=== PATIENT | female | born 1955 | race Caucasian/White ===

== ENCOUNTER 2021-10-07 05:25 | Inpatient (IN) | payer MEDICARE ==
[2021-10-01 10:32] LABS: BASOPHILS # (AUTO) 0.1 X10'3 (0-0.2); BASOPHILS % (AUTO) 0.6 % (0-1); EOSINOPHILS # (AUTO) 0.1 X10'3 (0-0.9); EOSINOPHILS % (AUTO) 0.9 % (0-6); LYMPHOCYTES # (AUTO) 2.5 X10'3 (1.1-4.8); LYMPHOCYTES % (AUTO) 19.1 % (21-51); MEAN CORPUSCULAR HEMOGLOBIN 32.7 PG (27.0-31.0); MEAN CORPUSCULAR HGB CONC 33.9 g/dL (33.0-36.5); MEAN CORPUSCULAR VOLUME 96.7 FL (78-98); MEAN PLATELET VOLUME 7.8 FL (7.4-10.4); MONOCYTES # (AUTO) 0.8 X10'3 (0-0.9); MONOCYTES % (AUTO) 5.8 % (2-12); NEUTROPHILS # (AUTO) 9.6 X10'3 (1.8-7.7); NEUTROPHILS % (AUTO) 73.6 % (42-75); PRE OP HEMATOCRIT 37.6 % (35.0-45.0); PRE OP HEMOGLOBIN 12.7 g/dL (12.0-16.0); PRE OP PLATELET COUNT 485 X10'3 (140-440); RED BLOOD COUNT 3.88 X10'6 (4.20-5.60); RED CELL DISTRIBUTION WIDTH 14.5 % (11.5-14.5)
[2021-10-01 11:09] LABS: ALBUMIN 4.3 G/DL (3.4-5.0); ALBUMIN/GLOBULIN RATIO 1.1 (1.1-1.5); ALKALINE PHOSPHATASE 50 IU/L (46-116); BLOOD UREA NITROGEN 25 MG/DL (7-18); BUN/CREATININE RATIO 22.5 (6.6-38.0); CALCIUM 9.5 MG/DL (8.5-10.1); CHLORIDE 104 MMOL/L (99-107); CREATININE 1.11 MG/DL (0.40-0.90); PRE OP ALT 28 U/L (30-65); PRE OP ANION GAP 11 (8-16); PRE OP AST 11 U/L (10-37); PRE OP BILIRUB, TOTAL 0.3 MG/DL (0.0-1.0); PRE OP GLUCOSE 116 MG/DL (70-104); PRE OP SODIUM 139 MMOL/L (135-145); TOTAL CARBON DIOXIDE 23.7 MMOL/L (24-32); TOTAL PROTEIN 8.2 G/DL (6.4-8.2); eGFR 49 ML/MIN
[2021-10-01 11:15] LABS: CLARITY,URINE CLEAR (Clear); COLOR,URINE YELLOW (Yellow); GLUCOSE, URINE NEGATIVE (Neg); KETONES,URINE NEGATIVE (Neg); LEUKOCYTE ESTERASE ,URINE TRACE (Neg); NITRITES, URINE NEGATIVE (Neg); OCCULT BLOOD,URINE NEGATIVE (Neg); PROTEIN,URINE TRACE mg/dl (Neg); UROBILINOGEN,URINE 0.2 E.U/dL (0.2-1.0)
[2021-10-01 11:19] LABS: UA COLLECTION TYPE NON-SPECIFIED
[2021-10-01 11:30] LABS: HYALINE CASTS >30 /LPF (NEGATIVE); SQUAMOUS EPITHELIAL CELL,UR MANY /LPF (FEW)
[2021-10-01 11:32] LABS: BACTERIA,URINE 1+ /HPF (Neg); RBC,URINE 0-2 /HPF (0-2); WBC,URINE 20-30 /HPF (0-4)
[~2021-10-07] VITALS: Ht 167.6 cm; Wt 77.7 kg
[2021-10-07] VITALS (21 sets, daily range): BP systolic 105–136; BP diastolic 47–64
[~2021-10-07 05:25] MED LIST: ACET-1084 PO; ASPI-611 PO; CHOL500050 PO; CLON-330 PO; HYDR25TA5 PO; IRON 65 MG PO; LISI20TA28 PO; ZINC50TA67 PO; ringers solution, lacted 1,000 ML IV SCH
[2021-10-07] MEDS ORDERED: MALTODEXTRIN/FRUCTOSE 0.68 KCAL/ML LIQUID 296ML BOTTLE PO ONE (05:30)
[2021-10-07] MEDS ORDERED: ceFOXitin 2GM-NS 100mL ADDvant 100 ML IV ONE (05:30)
[2021-10-07] MEDS ORDERED: heparin, porcine 5000 units/ml vial SQ ONE (05:30)
[2021-10-07] MEDS ORDERED: metroNIDAZOLE-Flagyl 500mg/NS 100ml IVPB IV ONE (05:30)
[2021-10-07] MEDS ORDERED: famotidine 20mg tablet PO ONE (05:30)
[2021-10-07] MEDS ORDERED: LIDOcaine 1% (10mg/ml) 2ml vial ONE (05:57)
[2021-10-07] MEDS ORDERED: tobramycin 40mg/ml inj ONE (06:48)
[2021-10-07] MEDS ORDERED: povidone-iodine 10% ointment 1 APPLIC APPLIC TP ONE (06:48)
[2021-10-07] MEDS ORDERED: BUPIVAcaine 0.5% inj/PF 30 ML ONE (06:48)
[2021-10-07] MEDS ORDERED: rocuronium 10mg/ml inj IV ONE ×2 (07:28→08:11)
[2021-10-07] MEDS ORDERED: sevoflurane 250ml liquid IH ONE (07:28)
[2021-10-07] MEDS ORDERED: midazolam 1 mg/ML 2ml injection ONE (07:36)
[2021-10-07] MEDS ORDERED: fentaNYL /PF 50mcg/ml 5ml ampule ONE (07:37)
[2021-10-07] MEDS ORDERED: dexamethasone sod phosphate 4mg/ml inj. ONE (08:11)
[2021-10-07] MEDS ORDERED: propofol inj 20 ML IV ONE (08:11)
[2021-10-07] MEDS ORDERED: ePHEDrine 50MG/ML INJ. ONE (08:11)
[2021-10-07] MEDS ORDERED: morphine 2 MG/ML inj. syringe IV PRN (08:40)
[2021-10-07] MEDS ORDERED: proCHLORperazine 10 MG/2 ml inj IV PRN (08:40)
[2021-10-07] MEDS ORDERED: morphine 4 MG/ML inj SYRINge IV PRN (08:40)
[2021-10-07] MEDS ORDERED: HYDROmorphone/PF 0.2 MG/ML SYRINGE IV PRN (08:40)
[2021-10-07] MEDS ORDERED: ondansetron/PF 4mg/2ml inj IV PRN ×2 (08:40→10:40)
[2021-10-07] MEDS ORDERED: ringers solution, lacted 1,000 ML IV SCH (08:40)
[2021-10-07] MEDS ORDERED: ondansetron/PF 4mg/2ml inj ONE (09:52)
[2021-10-07] MEDS ORDERED: neostigmine methylsulfate 1 MG/ML 10ml vial ONE (10:06)
[2021-10-07] MEDS ORDERED: glycopyrrolate 0.2mg/ml inj ONE (10:06)
--- NOTE | 2021-10-07 10:34 | NUR ---
Received from OR via HOSPITAL BED, accompanied by Anesthesiologist DR IRWIN and report given by Anesthesiolgist. PT PRESENTS WITH 20 G RIGHT HAND, 2X JASSI DRAIN ABD, VSS. Addendum: 10/07/21 at 1056 by Azra Benoit RN, RN Amended: Links added.
[2021-10-07] MEDS ORDERED: BUPIVAcaine 0.5% inj/PF 30 ml vial IJ ONE (10:38)
[2021-10-07] MEDS: potassium CL 20mEq in D5-1/2NS 1,000 ML IV SCH ×3 (10:40→22:57)
[2021-10-07] MEDS ORDERED: HYDROcodone/acetaminophen 5mg/325mg tablet PO PRN (10:40)
[2021-10-07] MEDS ORDERED: naloxone 0.4 mg/ml inj IV PRN (10:40)
[2021-10-07] MEDS ORDERED: CADD PCA waste documentation MC PRN (10:40)
[2021-10-07] MEDS: HYDROmorphone/PF 0.2 MG/ML SYRINGE IV PRN ×3 (11:02→14:41)
[2021-10-07] MEDS: HYDROmorph./NS 0.2 mg/ml CADD 100 ML IV SCH ×7 (11:27→23:00)
--- NOTE | 2021-10-07 11:54 | NUR ---
Report called to receiving nurse KANIKA DIGGS. Transferred via HOSPITAL BED WITH 2 PATIENT Belongings BAGS TO ROOM 344B. Special Issues communicated to receiving nurse. Addendum: 10/07/21 at 1202 by Azra Benoit RN RN Amended: Links added.
[2021-10-07] MEDS: polyethylene glycol 3350 17gm powd pack PO SCH ×3 (13:00→21:02)
[2021-10-07] MEDS ORDERED: acetaminophen 325mg tablet PO PRN (17:50)
[2021-10-07] MEDS ORDERED: hydrALAZINE 20mg/ml inj. IV PRN (17:50)
--- NOTE | 2021-10-07 18:20 | NUR ---
Patient in room [facility]. I have received report from Juan Diego DIGGS and had the opportunity to ask questions and assume patient care.
[2021-10-07] MEDS: heparin, porcine 5000 units/ml vial SQ SCH (19:07)
[2021-10-07] MEDS: docusate sod 100mg capsule PO SCH (21:02)
[2021-10-08 00:11] VITALS: BP 109/53
[2021-10-08] MEDS: HYDROmorph./NS 0.2 mg/ml CADD 100 ML IV SCH ×6 (00:53→11:00)
[2021-10-08 05:01] VITALS: BP 122/54
[2021-10-08 06:06] LABS: BASOPHILS % (AUTO) 0.1 % (0-1); EOSINOPHILS % (AUTO) 0 % (0-6); HEMATOCRIT 28.9 % (35.0-45.0); HEMOGLOBIN 9.9 g/dl (12.0-16.0); LYMPHOCYTES # (AUTO) 1.6 X10'3 (1.1-4.8); MEAN CORPUSCULAR HEMOGLOBIN 33.1 PG (27.0-31.0); MEAN CORPUSCULAR HGB CONC 34.2 g/dL (33.0-36.5); MEAN CORPUSCULAR VOLUME 96.7 FL (78-98); MEAN PLATELET VOLUME 7.9 FL (7.4-10.4); MONOCYTES # (AUTO) 0.9 X10'3 (0-0.9); MONOCYTES % (AUTO) 9.1 % (2-12); NEUTROPHILS # (AUTO) 7.2 X10'3 (1.8-7.7); NEUTROPHILS % (AUTO) 74.8 % (42-75); PLATELET COUNT 410 X10'3 (140-440); RED BLOOD COUNT 2.99 X10'6 (4.20-5.60); RED CELL DISTRIBUTION WIDTH 14.9 % (11.5-14.5); WHITE BLOOD COUNT 9.7 X10'3 (4.5-11.0)
[2021-10-08 06:15] LABS: ALBUMIN 3.6 G/DL (3.4-5.0); ANION GAP 8 (8-16); BLOOD UREA NITROGEN 13 MG/DL (7-18); BUN/CREATININE RATIO 14.3 (6.6-38.0); CALCIUM 8.8 MG/DL (8.5-10.1); CHLORIDE 106 MMOL/L (99-107); CREATININE 0.91 MG/DL (0.40-0.90); GLUCOSE 131 MG/DL (70-104); POTASSIUM 4.2 MMOL/L (3.5-5.1); SODIUM 138 MMOL/L (135-145); TOTAL CARBON DIOXIDE 24.5 MMOL/L (24-32); eGFR 62 ML/MIN
--- NOTE | 2021-10-08 06:26 | NUR ---
Patient in room [facility]. I have received report from Amanda and had the opportunity to ask questions and assume patient care.
--- NOTE | 2021-10-08 06:33 | NUR ---
Problems reprioritized. Patient report given, questions answered & plan of care reviewed with Corinne DIGGS .
[2021-10-08 07:01] VITALS: BP 132/50
[2021-10-08] MEDS: docusate sod 100mg capsule PO SCH ×2 (07:11→20:29)
[2021-10-08] MEDS: heparin, porcine 5000 units/ml vial SQ SCH (07:13)
[2021-10-08] MEDS: polyethylene glycol 3350 17gm powd pack PO SCH ×4 (07:14→20:31)
[2021-10-08] MEDS ORDERED: ferrous sulfate 325mg tablet PO SCH (08:00)
[2021-10-08] MEDS ORDERED: lisinopril 20mg tablet PO SCH (08:00)
[2021-10-08] MEDS ORDERED: aspirin 81mg, enteric-coated 1 TAB TABLET.DR PO SCH (08:00)
[2021-10-08] MEDS ORDERED: cloNIDine 0.1 mg tablet PO SCH (08:00)
[2021-10-08] MEDS ORDERED: non-formulary drug (Zinc 1 TAB) PO SCH (08:00)
[2021-10-08] MEDS ORDERED: cholecalciferol (vitamin D3) 1,000 unit (25mcg) tablet PO SCH (08:00)
[2021-10-08] MEDS ORDERED: HYDROchlorothiazide 25mg tablet PO SCH (08:00)
--- NOTE | 2021-10-08 09:35 | NUR ---
PAGER ID: [phone] MESSAGE: [id number] Thom Sands: patient states her skin is itchy, she would like a Benadryl? thanks, last [phone]
[2021-10-08] MEDS: potassium CL 20mEq in D5-1/2NS 1,000 ML IV SCH (10:22)
--- NOTE | 2021-10-08 10:59 | NUR ---
Malnutrition Consult: Noted pt stated wt loss of 24-33 lbs per RN malnutrition screen. Pt wt scaled w/ no hx of wt loss in EMR, normal/general strength, and no edema noted. Pt w/ no s/s of muscle or fat wasting observed at bedside. Pt s/p laparoscopic rectopexy, currently on full liquid diet, pending PO trends. Pt does not meet minimum criteria for malnutrition. Will continue to monitor. Addendum: 10/08/21 at [address] Amended: Links added. Addendum: 10/08/21 at [address] I have reviewed assessment by environmental health and safety intern
[2021-10-08 11:08] VITALS: BP 110/56
[2021-10-08] MEDS ORDERED: morphine 2 MG/ML inj. syringe IV PRN (11:25)
[2021-10-08] MEDS ORDERED: diphenhydrAMINE 25mg capsule PO ONE (11:25)
[2021-10-08 12:23] LABS: BASOPHILS % (AUTO) 0.3 % (0-1); EOSINOPHILS % (AUTO) 0.1 % (0-6); LYMPHOCYTES # (AUTO) 2.1 X10'3 (1.1-4.8); LYMPHOCYTES % (AUTO) 17.7 % (21-51); MEAN CORPUSCULAR HEMOGLOBIN 32.6 PG (27.0-31.0); MEAN CORPUSCULAR HGB CONC 33.3 g/dL (33.0-36.5); MONOCYTES % (AUTO) 8.3 % (2-12); NEUTROPHILS # (AUTO) 8.9 X10'3 (1.8-7.7); NEUTROPHILS % (AUTO) 73.6 % (42-75); PLATELET COUNT 424 X10'3 (140-440); RED BLOOD COUNT 3.06 X10'6 (4.20-5.60); RED CELL DISTRIBUTION WIDTH 15.1 % (11.5-14.5)
[2021-10-08] MEDS: HYDROcodone/acetaminophen 10/325mg tab PO PRN ×2 (12:31→17:38)
--- NOTE | 2021-10-08 16:55 | NUR ---
D/C Abdulaziz. gf/sn
--- NOTE | 2021-10-08 17:57 | NUR ---
Student documentation: I have reviewed all interventions, assessments performed and documented by SN Jamila. Student Medication Administration: For this medication-pass time frame, all medication were reviewed, dispensed, administered and documented per hospital policy by SN Jamila.
[2021-10-08 18:00] VITALS: BP 102/41
--- NOTE | 2021-10-08 18:24 | NUR ---
Problems reprioritized. Patient report given, questions answered & plan of care reviewed with
--- NOTE | 2021-10-08 21:52 | NUR ---
Student documentation: I have reviewed interventions, assessments performed and documented by Ondina MARION [facility].
--- NOTE | 2021-10-08 21:53 | NUR ---
Student Medication Administration: For this medication-pass time frame, all medication were reviewed, dispensed, administered and documented per hospital policy by Ondina MARION [facility].
[2021-10-08 23:57] VITALS: BP 109/46
[2021-10-09] MEDS: HYDROcodone/acetaminophen 10/325mg tab PO PRN ×2 (03:11→07:35)
[2021-10-09] MEDS: potassium CL 20mEq in D5-1/2NS 1,000 ML IV SCH (05:12)
--- NOTE | 2021-10-09 06:00 | NUR ---
Patient in room [facility]. I have received report from CATERINA Ch and had the opportunity to ask questions and assume patient care.
[2021-10-09 06:05] LABS: BASOPHILS # (AUTO) 0.1 X10'3 (0-0.2); BASOPHILS % (AUTO) 0.8 % (0-1); EOSINOPHILS # (AUTO) 0.1 X10'3 (0-0.9); EOSINOPHILS % (AUTO) 1.2 % (0-6); HEMATOCRIT 32.8 % (35.0-45.0); HEMOGLOBIN 10.9 g/dl (12.0-16.0); LYMPHOCYTES # (AUTO) 1.9 X10'3 (1.1-4.8); LYMPHOCYTES % (AUTO) 23.2 % (21-51); MEAN CORPUSCULAR HEMOGLOBIN 32.4 PG (27.0-31.0); MEAN CORPUSCULAR HGB CONC 33.2 g/dL (33.0-36.5); MEAN CORPUSCULAR VOLUME 97.6 FL (78-98); MONOCYTES # (AUTO) 0.8 X10'3 (0-0.9); MONOCYTES % (AUTO) 9.3 % (2-12); NEUTROPHILS # (AUTO) 5.4 X10'3 (1.8-7.7); NEUTROPHILS % (AUTO) 65.5 % (42-75); PLATELET COUNT 441 X10'3 (140-440); RED BLOOD COUNT 3.36 X10'6 (4.20-5.60); RED CELL DISTRIBUTION WIDTH 15.3 % (11.5-14.5); WHITE BLOOD COUNT 8.2 X10'3 (4.5-11.0)
--- NOTE | 2021-10-09 06:10 | NUR ---
Problems reprioritized. Patient report given, questions answered & plan of care reviewed with Corinne DIGGS.
--- NOTE | 2021-10-09 06:11 | NUR ---
Student documentation: I have reviewed and agree with all interventions, assessments performed and documented by Nicky KUNZ.
[2021-10-09 06:30] LABS: ALBUMIN 3.7 G/DL (3.4-5.0); ANION GAP 5 (8-16); BLOOD UREA NITROGEN 15 MG/DL (7-18); BUN/CREATININE RATIO 16.3 (6.6-38.0); CALCIUM 9.3 MG/DL (8.5-10.1); CHLORIDE 108 MMOL/L (99-107); CREATININE 0.92 MG/DL (0.40-0.90); GLUCOSE 112 MG/DL (70-104); POTASSIUM 4.5 MMOL/L (3.5-5.1); SODIUM 139 MMOL/L (135-145); TOTAL CARBON DIOXIDE 26.1 MMOL/L (24-32); eGFR 61 ML/MIN
[2021-10-09] MEDS: docusate sod 100mg capsule PO SCH (07:37)
[2021-10-09] MEDS: polyethylene glycol 3350 17gm powd pack PO SCH (07:37)
[2021-10-09 07:41] VITALS: BP 149/51
[2021-10-09] MEDS ORDERED: HYDR-3964 PO (10:32)
[2021-10-09 11:30] VITALS: BP 144/66
--- NOTE | 2021-10-09 11:42 | NUR ---
Patient stable and appropriate for discharge home. IV removed, all belongings taken from room. New RX e-scripted to Breanne Olivares. All discharge instructions and education given and reviewed with patient. All questions answered. Lap sites x5 CDI.
[2021-10-09] MEDS ORDERED: lisinopril 20mg tablet PO SCH (21:00)
[2021-10-09] MEDS ORDERED: aspirin 81mg, enteric-coated 1 TAB TABLET.DR PO SCH (21:00)
[2021-10-09] MEDS ORDERED: cloNIDine 0.1 mg tablet PO SCH (21:00)
[2021-10-09] MEDS ORDERED: HYDROchlorothiazide 25mg tablet PO SCH (21:00)
[2021-10-09] MEDS ORDERED: cholecalciferol (vitamin D3) 1,000 unit (25mcg) tablet PO SCH (21:00)
[2021-10-09] MEDS ORDERED: ferrous sulfate 325mg tablet PO SCH (21:00)
== END 2021-10-09 11:36 | disposition home or self-care (01) | DRG 331 ==
LOC: PAS IN 05:25 → SUR 3N 10:46
PROVIDERS: ADMIT Colon & Rectal Surgery; ATTEND Colon & Rectal Surgery
PROC: 8E0W4CZ Robotic Assisted Procedure of Trunk Region, Percutaneous Endoscopic Approach (ICD-10-PCS; 2021-10-07)
PROC: 0DQP4ZZ Repair Rectum, Percutaneous Endoscopic Approach (ICD-10-PCS; principal; 2021-10-07 07:28)
DX: K62.3 Rectal prolapse (principal); I10 Essential (primary) hypertension; Z79.899 Other long term (current) drug therapy; Z79.82 Long term (current) use of aspirin; Z88.8 Allergy status to other drugs, medicaments and biological substances; Z68.27 Body mass index [BMI] 27.0-27.9, adult
CPT/HCPCS: 36415; 80048; 80053; 81001; 82948; 85025; 87081; 93005; A4355; A4402; A4618; A6402; A6449; A7000; G0378; J0694; J1100; J1170; J1644; J2250; J2405; J2704; J2710; J3010; J3260; J3480; J3490; J7030; J7120; Q0163; S0020; U0003; U0005